=== PATIENT | male | born 1975 | race Caucasian/White ===

== ENCOUNTER → 2020-11-17 | Day surgery (SDC) | payer OTHER ==
[~2020-11-17] MED LIST: FISH OIL 1,0001 EAC4 PO; HYDROCODON-ACE1 EAC4 PO; JANUMET 50-1,01 EACH PO; JARDIANCE10 MG PO; LIPITOR10 MG PO; LISINOPRIL40 MG PO; NORCO 5-325 TA1 EACH PO; PLAVIX75 MG PO; PREVACID30 MG PO; TOPROL XL25 MG PO
== END | disposition home or self-care (01) ==
LOC: OR 10-22 07:30
DX: R59.0 Localized enlarged lymph nodes (principal); I10 Essential (primary) hypertension; E11.9 Type 2 diabetes mellitus without complications; I25.10 Atherosclerotic heart disease of native coronary artery without angina pectoris; E78.5 Hyperlipidemia, unspecified; E66.01 Morbid (severe) obesity due to excess calories; Z79.84 Long term (current) use of oral hypoglycemic drugs; Z79.899 Other long term (current) drug therapy; I25.2 Old myocardial infarction; F17.210 Nicotine dependence, cigarettes, uncomplicated; Z80.42 Family history of malignant neoplasm of prostate; Z80.1 Family history of malignant neoplasm of trachea, bronchus and lung; Z95.5 Presence of coronary angioplasty implant and graft; Z88.8 Allergy status to other drugs, medicaments and biological substances; Z91.041 Radiographic dye allergy status; Z79.02 Long term (current) use of antithrombotics/antiplatelets
CPT/HCPCS: 82962; J0690; J1100; J2001; J2250; J2405; J2704; J3010; J7030; J7120

== ENCOUNTER 2020-11-18 22:58 | Emergency (ER) | payer OTHER ==
[2020-11-18 23:30] LABS: HEMOGLOBIN 19.1 gm/dl (14.0-17.5); RED BLOOD COUNT 6.13 M/UL (4.20-5.50); WHITE BLOOD COUNT 15.8 K/UL (4.5-11.0)
== END 2020-11-19 01:42 | disposition home or self-care (01) ==
LOC: ER1 22:58
PROVIDERS: Family Medicine
DX: L76.32 Postprocedural hematoma of skin and subcutaneous tissue following other procedure (principal); I10 Essential (primary) hypertension; E11.9 Type 2 diabetes mellitus without complications; Z79.84 Long term (current) use of oral hypoglycemic drugs; Y83.8 Other surgical procedures as the cause of abnormal reaction of the patient, or of later complication, without mention of misadventure at the time of the procedure
CPT/HCPCS: 71046; 85025; 85610; 99285